=== PATIENT | male | born 1945 | race Caucasian/White ===

== ENCOUNTER 2021-07-01 09:41 | Outpatient (CLI) | payer MEDICARE, SELFPAY ==
[2021-07-01 10:24] LABS: Alanine Aminotransferase 16 U/L (4-50); Albumin Level 4.3 g/dL (3.5-5.1); Alkaline Phosphatase 64 U/L (38-126); Anion Gap 9 mmol/L (8-16); Aspartate Amino Transferase 20 U/L (17-59); Bilirubin,Total 0.6 mg/dL (0.2-1.3); Blood Urea Nitrogen 15 mg/dL (9-20); Calcium 9.2 mg/dL (8.4-10.2); Carbon Dioxide 29 mmol/L (22-30); Chloride 103 mmol/L (98-107); Cholesterol 126 mg/dL (0-200); Estimated Glomerular Filt Rate 59; Glucose 220 mg/dL (65-110); HDL Direct 43 mg/dL; Sodium 141 mmol/L (137-145); Triglycerides 146 mg/dL (<150)
[2021-07-01 10:35] LABS: LDL Cholesterol Direct 64 mg/dL
[2021-07-01 10:36] LABS: Creatinine Urine 51.5 mg/dL
[2021-07-01 10:40] LABS: MALB Creatinine Ratio 134.4 mg/g (0-30); Microalbumin Urine Random 69.2 mg/L (0-16.7)
== END 2021-07-01 09:42 | disposition home or self-care (01) ==
PROVIDERS: Visit Provider Internal Medicine
DX: E11.40 Type 2 diabetes mellitus with diabetic neuropathy, unspecified (principal); E78.5 Hyperlipidemia, unspecified
CPT/HCPCS: 36415; 80053; 80061; 82043; 83036

== ENCOUNTER 2022-09-19 10:04 | Outpatient (CLI) | payer MEDICARE, SELFPAY ==
[2022-09-19 11:08] LABS: Hematocrit 40.3 % (42.0-52.0); Hemoglobin 13.3 g/dL (14.0-18.0); Mean Corpuscular Hemoglobin 29.8 pg (26-34); Mean Corpuscular Volume 90.2 fl (80-100); Mean Platelet Volume 9.3 fl (7.4-10.4); Platelet Count Result 213 k/mm3 (150-375); Red Blood Count 4.47 M/mm3 (4.6-6.20); Red Cell Distribution Width 15.4 % (11.5-14.5); White Blood Count 8.8 K/mm3 (4.5-10.0)
[2022-09-22 04:17] LABS: C-Peptide 2.76 ng/mL (0.80-3.85)
[2022-09-22 20:10] LABS: Glutamic acid decarboxylase AA <5 IU/mL (<5)
[2022-09-26 16:38] LABS: Zinc Transporter 8 Antibody <10 U/mL (<15)
== END 2022-09-19 10:05 | disposition home or self-care (01) ==
LOC: ANHLAB 10:06
PROVIDERS: Visit Provider Internal Medicine
DX: E11.9 Type 2 diabetes mellitus without complications (principal)
CPT/HCPCS: 36415; 84681; 85027; 86341

== ENCOUNTER 2024-05-01 09:30 | Outpatient (CLI) | payer MEDICARE, SELFPAY ==
[2024-05-01 10:37] LABS: Prostate Specific Antigen 3.9 ng/mL (< OR = 4.0)
== END 2024-05-01 09:31 | disposition home or self-care (01) ==
DX: Z12.5 Encounter for screening for malignant neoplasm of prostate (principal)
CPT/HCPCS: 36415; 84153; G0103